=== PATIENT | male | born 2000 | race Hispanic/Latino ===

== ENCOUNTER 2022-06-17 21:16 | Emergency (ER) | payer SELFPAY ==
[~2022-06-17] VITALS: Ht 165.1 cm; Wt 72.0 kg
[2022-06-17 21:30] VITALS: BP 105/62
[2022-06-17 21:42] LABS: BASO% 0.4 % (0-3); EOS% 11.1 % (0-8); HEMATOCRIT 41.2 % (39.0-50.0); HEMOGLOBIN 13.5 g/dl (14.0-18.0); IMMATURE GRANULOCYTES 0.2 % (0.0-5.0); LYMPH% 47.2 % (15-41); MEAN CORPUSCULAR HGB 30.5 pG CALC (26.0-32.0); MEAN CORPUSCULAR HGB CONC 32.8 g/dL CAL (32.0-36.0); MONO% 5.5 % (2-13); NEUT# 3.02 thou/uL (1.82-7.42); NEUT% 35.6 % (42-76); RED BLOOD COUNT 4.43 mill/uL (4.70-6.10); RED CELL DISTRI WIDTH 12.3 % (11.5-15.5)
[2022-06-17 22:00] LABS: ALKALINE PHOSPHATASE 106 u/l (38-126); ANION GAP 11 (6-22 (CALC)); BILIRUBIN, TOTAL 0.4 mg/dL (0.2-1.3); BUN 12 mg/dL (8-21); BUN/CREATININE RATIO 16 (12-20 (CALC)); CARBON DIOXIDE 24 mmol/l (22-30); CHLORIDE 109 mmol/l (95-108); CREATININE 0.8 mg/dL (0.7-1.3); ETHYL ALCOHOL 0 mg/dl (0-30); GFR FOR AFR.AMER. > 60 ML/MIN (>=60 (CALC)); GFR OTHER RACES > 60 ML/MIN (>=60 (CALC)); LIPASE 99 u/l (23-300); POTASSIUM 3.8 mmol/l (3.5-5.1); SGOT/AST 30 u/l (17-59); SODIUM 140 mmol/l (137-146); TOTAL PROTEIN 6.8 g/dL (6.3-8.2)
[2022-06-18] MEDS ORDERED: PEPCID40 MG PO (00:26)
[2022-06-18 01:02] VITALS: BP 104/72
== END 2022-06-18 02:07 | disposition home or self-care (01) | DRG 392 ==
LOC: ED 21:16 → EDBD 21:16 → ED 22:23
PROVIDERS: Family Medicine
DX: K29.70 Gastritis, unspecified, without bleeding (principal)
CPT/HCPCS: Q9967; S0164